=== PATIENT | male | born 1995 | race Caucasian/White ===

== ENCOUNTER 2018-06-04 12:51 | Emergency (ER) | payer SELFPAY ==
[2018-06-04 12:56] VITALS: BP 145/67
[2018-06-04] MEDS ORDERED: KETOROLAC TROMETHAMINE 60 MG/2 ML SDV IM ONE (14:05)
[2018-06-04] MEDS ORDERED: DEXAMETHASONE SOD PHOS INJ 10 MG/1 ML VIAL IM ONE (14:06)
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
== END 2018-06-04 14:10 | disposition left against medical advice (07) ==
LOC: ER 12:51
DX: M54.42 Lumbago with sciatica, left side (principal); M54.41 Lumbago with sciatica, right side; Z87.891 Personal history of nicotine dependence
CPT/HCPCS: 99283